=== PATIENT | female | born 2000 | race Caucasian/White ===

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

== ENCOUNTER 2024-01-19 02:20 | Emergency (ER) | payer MEDICAID, SELFPAY ==
[2024-01-19] VITALS (29 sets, daily range): BP systolic 97–152; BP diastolic 42–102; PULSE 68–137; RESP 13–29; TEMP 36.6
[2024-01-19 02:39] LABS: HCT 38.5 % (36.0-46.0); HGB 14.2 g/dL (11.2-15.7); MCH 32.4 pg (27.0-33.0); MCHC 36.9 % (32.0-36.0); MCV 88 fL (80-95); Platelet Count 392 10^3/uL (130-400); RBC 4.38 10^6/uL (3.93-5.22); RDW 11.5 % (11.7-14.6); WBC 8.35 10^3/uL (4.4-10.8)
--- NOTE | 2024-01-19 02:40 | ED.GENADUL_ITS ---
Discharge Plan Discharge Details Chief Complaint: ETOHWithdr Primary Care Provider: Unknown,Unknown ED Provider: Ford Gannon Discharge Data Discharge Physician: Ford Gannon [facility] General Date/Time Provider Initiated Documentation: 01/19/24 02:22 . HPI Narrative: The patient is a 23-year-old female with no known past medical history, who presents the emergency department this evening after the patient was found to be intoxicated and combative and a home that she does not live in earlier this evening by police and EMS. The sober adult who was in the home said that the patient had been drinking alcohol and may have been using other psychedelic drugs, but they were unsure. The patient can provide no meaningful history of the events of the course of the evening. She is awake, alert, and mildly agitated on arrival. She admits to drinking alcohol and then admitted to a wide variety of different drug usage, and it is unclear if any of this is true. General Stated Complaint: ETOHWithdr BREE: 3 Exam Const Other: The patient is awake and alert and laughing in her bed at this time. The patient is easily agitated. Resp Other: Auscultated breath sounds are clear bilaterally. There is no decreased respiratory effort or increased work of breathing. Cardio Other: The patient has a regular rate and rhythm without any murmurs, rubs, or gallops GI Other: The abdomen is soft, nontender, and has normal bowel sounds. Skin Other: There are no armijo or lesions on the skin no be indicative of a traumatic i njury. Neuro Other: The patient is awake and alert with slurred speech indicative of alcohol intoxication. The patient spontaneously moves all 4 extremities and does not appear to have any focal motor or sensory deficits. The visualized components of the cranial nerves appear to be grossly intact. The patient was ambulatory to the bathroom and mildly ataxic, indicative of alcohol intoxication. Course Vital Signs Vital signs: Vital Signs Temperature 36.6 C 01/19/24 02:15 Pulse 68 01/19/24 02:15 Respiratory Rate 18 01/19/24 02:15 Blood Pressure 134/86 01/19/24 02:15 Temperature 36.6 C 01/19/24 02:15 Temperature Source Temporal Artery Scan 01/19/24 02:15 Pulse 68 01/19/24 02:15 Respiratory Rate 18 01/19/24 02:15 Respiratory Effort Normal 01/19/24 02:20 Respiratory Pattern Normal 01/19/24 02:20 Blood Pressure 134/86 01/19/24 02:15 Blood Pressure Position Supine 01/19/24 02:15 Oxygen Delivery Method Room Air 01/19/24 02:15 Oxygen Flow Rate 0 01/19/24 02:15 Medical Decision Making Medical Records Medical records narrative: The patient was seen and examined. She clearly appears to be at least intoxicated with alcohol, given the slurred speech, ataxia, and the alcoholic halitosis. The patient admits to a wide variety of other drug use tonight, but I am dubious of this, given the amount and different varieties of things she named. The patient will have basic labs and a blood alcohol level and urine drug screen obtained. She will be observed on telemetry and oxygen saturation monitoring for improved sobriety. Disposition depends on improved sensorium and a safe discharge plan, assuming labs are reasonable. [id number] - The patient only required a modest amount of medical therapy to help improve her sedation and allow her to sleep over the arc of the shift. Although the patient had a relatively high alcohol, she has been observed for 4 hours and is clinically much more sober at this time. The patient's mother has come to the emergency room and feels comfortable taking the patient home at this time. Quality:SDOH Health Related Social Needs: No Data to Display PFSH Social History Smoking/Tobacco Use Status: Never Smoking risk assessment performed?: Yes Alcohol Intake: current Drug use: Never Substance use type: does not use Housing: apartment
[2024-01-19 02:51] LABS: Anion Gap 15.3 mmol/L (3-11); BUN 7 mg/dL (7-18); CO2 21.7 mmol/L (21.0-32.0); CREATININE 0.9 mg/dL (0.55-1.02); Chloride 108 mmol/L (98-107); Estimated GFR 93.28 (mL/min/1.73m2); Glucose 108 mg/dL (74-106); Potassium 3.3 mmol/L (3.5-5.1); Sodium 145 mmol/L (136-145)
[2024-01-19 02:55] LABS: HCG Qual (Serum) Negative
[2024-01-19 03:10] LABS: ETHANOL BLOOD 310.2 mg/dL (<10)
[2024-01-19] MEDS: Haloperidol 5 MG/ML VIAL 2 MG IM/IV (03:20)
[2024-01-19 03:30] LABS: *AMPHETAMINES SCREEN URINE Negative (Negative); *BARBITURATES SCREEN URINE Negative (Negative); *BENZODIAZEPINES SCREEN URINE Negative (Negative); Cannabinoids THC Positive (Negative); Cocaine Screen,Urine Negative (Negative); METHADONE URINE SCREEN Negative (Negative); OPIATES URINE SCREEN Negative (Negative)
[2024-01-19 03:33] LABS: Tricyclic Antidepressants Negative (Negative)
== END 2024-01-19 06:29 | disposition home or self-care (01) ==
PROVIDERS: Emergency Provider Emergency Medicine Emergency Medical Services
DX: F10.120 Alcohol abuse with intoxication, uncomplicated (principal); Y90.8 Blood alcohol level of 240 mg/100 ml or more
CPT/HCPCS: 80048; 80307; 81025; 85027; 99283; 80320; 84703; J1630